=== PATIENT | male | born 1985 | race Caucasian/White ===

== ENCOUNTER 2017-09-12 20:47 | Emergency (ER) | payer MEDICAID, OTHER ==
[~2017-09-12] VITALS: Ht 175.3 cm; Wt 67.2 kg
[2017-09-12 20:57] VITALS: Ht 175.3 cm; Wt 67.2 kg
[2017-09-12] MEDS ORDERED: HYDR30CR75 PR (23:09)
[2017-09-12] MEDS ORDERED: DOCU-144 PO (23:09)
--- NOTE | 2017-09-12 23:17 | ERD ---
ER Documentation Chief Complaint Chief Complaint BLOOD IN STOOL X1 TODAY HPI This is a 31-year-old male that presents to the ER because he had bright red blood per rectum after 2 bowel movements today. Per patient he is typically constipated and is very hard for him to have a bowel movement. He spends about 15-20 minutes on the toilet straining. Blood was on stool and on toilet paper. Patient does admit to some burning with bowel movement and some itching. Patient denies any melena, nausea or vomiting. Denies any abdominal pain, he denies any rectal pain. He denies any fevers or chills. ROS 12 point review of systems was done, all negative except per HPI. Medications Home Meds Active Scripts Docusate Sodium* (Colace*) 100 Mg Capsule, 100 MG PO TID for 5 Days, #30 CAP Prov:ODELL OSORIO 09/12/17 Hydrocortisone Acetate* (Anusol-HC*) 30 Gm Cream.gm., 1 APPLIC LA BID for 5 Days , TUB Prov:ODELL OSORIO 09/12/17 PMhx/Soc Medical and Surgical Hx: pt denies Medical Hx, pt denies Surgical Hx Hx Alcohol Use: No Hx Substance Use: No Hx Tobacco Use: No Smoking Status: Never smoker Physical Exam Vitals Vital Signs Date Time Temp Pulse Resp B/P Pulse Ox O2 Delivery O2 Flow Rate FiO2 09/12/17 20:57 98.1 67 20 121/83 98 Physical Exam GENERAL: The patient is well developed and appropriate for usual state of health , in no apparent distress. HEENT: Atraumatic. CHEST: Clear to auscultation bilaterally. There are no rales, wheezes or rhonchi. HEART: Regular rate and rhythm. No murmurs, clicks, rubs or gallops. ABDOMEN: Soft, nontender and nondistended. RECTAL: patient has a small anal fissure, no external hemorrhoids seen, no gross bleeding is seen NEURO: Alert and oriented. Procedures/MDM This is a 31-year-old male presents to the ER with 2 episodes of bright red blood per rectum after 2 bowel movements today. Patient did have a small anal fissure, suspicion for unstable rectal bleed is low. Patient is asymptomatic otherwise and does not have any abdominal pain or rectal pain. Suspicion for intra-abdominal emergency or abscess is low. Your anemia is low, patient does not have any dizziness, shortness of breath, weakness. Patient's rectal examination was benign other than small anal fissure. He does have history of constipation, which could cause his symptoms. Advised patient that if rectal bleeding continues he needs to see a GI doctor and get a colonoscopy to rule out malignancy. And needs to follow-up with his primary care doctor within 1-2 days return to ER sooner if symptoms worsen. My medical decision making shared with the patient and with his friend. Both understand and agree with plan. Departure Diagnosis: Primary Impression: Rectal bleeding Condition: Stable Patient Instructions: Understanding Rectal Bleeding Additional Instructions: Call your primary care doctor TOMORROW for an appointment during the next 1-2 days.See the doctor sooner or return here if your condition worsens before your appointment time. ODELL OSORIO Sep 12, 2017 23:17
== END 2017-09-13 00:18 | disposition home or self-care (01) ==
LOC: FTE 20:47
DX: K62.5 Hemorrhage of anus and rectum (principal)
CPT/HCPCS: 99284